=== PATIENT | male | born 1965 | race Caucasian/White ===

== ENCOUNTER 2018-10-07 15:26 | Emergency (ER) | payer OTHER ==
[~2018-10-07] VITALS: Ht 177.8 cm; Wt 77.1 kg
[2018-10-07 15:37] VITALS: Ht 177.8 cm; Wt 77.1 kg
[2018-10-07 18:45] VITALS: BP 117/74
== END 2018-10-07 18:45 | disposition home or self-care (01) ==
LOC: ED 15:26
DX: G40.89 Other seizures (principal); S00.81XA Abrasion of other part of head, initial encounter; S00.512A Abrasion of oral cavity, initial encounter; M06.9 Rheumatoid arthritis, unspecified; X58.XXXA Exposure to other specified factors, initial encounter; Y93.89 Activity, other specified; Y92.89 Other specified places as the place of occurrence of the external cause; Y99.8 Other external cause status